=== PATIENT | female | born 1965 | race African-American/Black ===

== ENCOUNTER → 2018-10-14 | Outpatient (CLI) | payer OTHER | LOC: MHCPAIN 13:49 | DX: G89.29 Other chronic pain (principal); M47.817 Spondylosis without myelopathy or radiculopathy, lumbosacral region; M53.3 Sacrococcygeal disorders, not elsewhere classified | CPT/HCPCS: G0463 ==

== ENCOUNTER → 2019-01-04 | Outpatient (CLI) | payer OTHER | LOC: MHCPAIN 10:46 | DX: G89.29 Other chronic pain (principal); M47.817 Spondylosis without myelopathy or radiculopathy, lumbosacral region; M53.3 Sacrococcygeal disorders, not elsewhere classified | CPT/HCPCS: G0463 ==

== ENCOUNTER 2019-02-15 10:30 | Outpatient (RCR) | payer OTHER | END 2019-02-16 | disposition home or self-care (01) | LOC: WSPT | DX: M47.817 Spondylosis without myelopathy or radiculopathy, lumbosacral region (principal); M54.9 Dorsalgia, unspecified; G89.29 Other chronic pain; M53.3 Sacrococcygeal disorders, not elsewhere classified ==

== ENCOUNTER 2019-03-09 09:00 | Outpatient (RCR) | payer OTHER | END 2019-03-10 14:26 | disposition home or self-care (01) | LOC: WSC 09:00 | DX: M47.817 Spondylosis without myelopathy or radiculopathy, lumbosacral region (principal); M53.3 Sacrococcygeal disorders, not elsewhere classified ==